=== PATIENT | female | born 1950 ===

== ENCOUNTER 2018-02-01 09:46 | Emergency (ER) | payer MEDICARE ==
[2018-02-01 10:37] VITALS: TEMP 98
--- NOTE | 2018-02-01 10:51 | C.PDOC ---
History Of Present Illness 67 y/o F c PMHx HTN, HLD, DM, cardiac stents, uses breathing machine only at night, anxiety p/w general weakness x 3 days, gradually worsening. Denies LOC or fall. Reports loose stool this morning. Denies fever, chills, chest pain, vomiting, motor weakness. Time Seen by Provider: 02/01/18 10:37 Chief Complaint (Nursing): Weakness/Neurological Deficit Past Medical History Vital Signs: Last Vital Signs Temp 98 F 02/01/18 13:56 Pulse 86 02/01/18 13:56 Resp 18 02/01/18 13:56 BP 104/74 02/01/18 13:56 Pulse Ox 98 02/01/18 13:56 - Medical History PMH: HTN Family History: States: No Known Family Hx - Social History Hx Alcohol Use: No Hx Substance Use: No Review Of Systems Except As Marked, All Systems Reviewed And Found Negative. Constitutional: Negative for: Fever Cardiovascular: Negative for: Chest Pain Physical Exam - Physical Exam Additional Physical Exam Comments: Constitutional: Appears generally weak. Head: Normocephalic. Atraumatic. Eyes: PERRL. ENT: Moist mucous membranes. Neck: Supple. Cardiovascular: Regular rate. Radial pulse 2+ bilaterally. Chest: No tenderness. Respiratory: Clear to auscultation bilaterally. GI: Soft. Epigastric and suprapubic tenderness. Back: No CVA tenderness. Musculoskeletal: No tenderness or swelling of extremities. Skin: No rash. Neurologic: Alert, no focal deficit. ED Course And Treatment - Laboratory Results Result Diagrams: 02/01/18 10:55 02/01/18 10:55 O2 Sat by Pulse Oximetry: 99 Medical Decision Making Medical Decision Making: EKG NSR 80 bpm, no ST elevations. Chest X-Ray HISTORY: general weakness COMPARISON: No prior. FINDINGS: LUNGS: The lungs are well inflated and clear. PLEURA: No significant pleural effusion identified, no pneumothorax apparent. CARDIOVASCULAR: Normal. OSSEOUS STRUCTURES: No significant abnormalities. VISUALIZED UPPER ABDOMEN: Normal. OTHER FINDINGS: None. IMPRESSION: No active pulmonary disease. CT ABD IMPRESSION: Mild nonspecific enteritis involving multiple loops of proximal jejunum. Sigmoid diverticulosis without evidence of diverticulitis. Status post cholecystectomy. No other significant abnormality. Patient states she feels better. Offered admission but she refused and wished to go home. F/u PMD, instructed to return to ED for worsening pain, fever, vomiting, dyspnea, or any other problem. Disposition - Disposition Disposition: HOME/ ROUTINE Disposition Time: 13:59 Condition: STABLE Prescriptions: levoFLOXacin [Levaquin] 1 tab PO DAILY #10 tab Metronidazole [Flagyl] 500 mg PO Q8 #30 tab Ondansetron ODT [Zofran ODT] 4 mg PO Q8 #12 odt Instructions: Acute Abdomen (Belly Pain), Adult (DC) Forms: [employer] (Persian) - Clinical Impression Clinical Impression: Enteritis
[2018-02-01 11:00] LABS: BASO % 0.5 % (0.0-2.0); EOS % 0.4 % (0.0-4.0); HEMOGLOBIN 13.6 g/dL (11.0-16.0); LYMPH # 2.2 K/uL (1.0-4.3); LYMPH % 27.1 % (20.0-40.0); MEAN CELL VOLUME 86.8 fL (81.0-99.0); MEAN CORPUSCULAR HEMOGLOBIN 29.4 pg (27.0-31.0); MEAN CORPUSCULAR HGB CONC 33.9 g/dL (33.0-37.0); MEAN PLATELET VOLUME 8.1 fL (7.2-11.7); MONO # 0.6 K/uL (0.0-0.8); MONO % 7.7 % (0.0-10.0); NEUT # 5.3 K/uL (1.8-7.0); NEUT % 64.3 % (50.0-75.0); RBC 4.62 Mil/uL (3.80-5.20); WHITE BLOOD COUNT 8.2 K/uL (4.8-10.8)
[2018-02-01 11:09] LABS: PROTHROMBIN TIME 10.7 SECONDS (9.7-12.2)
[2018-02-01 11:14] LABS: ALB/GLOB RATIO 1.4 (1.0-2.1); ALBUMIN 4.6 g/dL (3.5-5.0); ALT/SGPT 29 U/L (9-52); AST/SGOT 26 U/L (14-36); BLOOD UREA NITROGEN 11 mg/dL (7-17); CALCIUM 10.6 mg/dl (8.6-10.4); GFR AFRICAN-AMERICAN > 60; GFR NON-AFRICAN AMERICAN > 60; LIPASE 83 U/L (23-300)
[2018-02-01 11:26] LABS: B-TYPE NATRIURETIC PEPTIDE 55.8 pg/mL (0-900)
--- NOTE | 2018-02-01 11:36 | RAD ---
HISTORY: general weakness COMPARISON: No prior. FINDINGS: LUNGS: The lungs are well inflated and clear. PLEURA: No significant pleural effusion identified, no pneumothorax apparent. CARDIOVASCULAR: Normal. OSSEOUS STRUCTURES: No significant abnormalities. VISUALIZED UPPER ABDOMEN: Normal. OTHER FINDINGS: None. IMPRESSION: No active pulmonary disease.
[2018-02-01 11:54] LABS: URINE BILIRUBIN NEGATIVE (NEGATIVE); URINE BLOOD NEGATIVE (NEGATIVE); URINE CLARITY Clear (Clear); URINE COLOR Straw (YELLOW); URINE GLUCOSE (UA) NORMAL (Normal); URINE LEUKOCYTE ESTERASE NEG Leu/uL (Negative); URINE PROTEIN NEGATIVE (NEGATIVE); URINE UROBILINOGEN NORMAL mg/dL (0.2-1.0)
[2018-02-01] MEDS ORDERED: Iodixanol 320 MG/ML 100 ML BOTTLE IV ONE (13:35)
[2018-02-01 13:56] VITALS: PULSE 86; RESP 18
--- NOTE | 2018-02-01 15:05 | CT ---
PROCEDURE: CT Abdomen and Pelvis with contrast HISTORY: abd pain COMPARISON: None. TECHNIQUE: Contrast dose: 100 mL Visipaque 320 Radiation dose: Total exam DLP = 441.63 mGy-cm. This CT exam was performed using one or more of the following dose reduction techniques: Automated exposure control, adjustment of the mA and/or kV according to patient size, and/or use of iterative reconstruction technique. FINDINGS: LOWER THORAX: Unremarkable. LIVER: No mass. Smooth contour. Normal size. Mild central intrahepatic biliary dilatation consistent with prior cholecystectomy. GALLBLADDER AND BILE DUCTS: Status post cholecystectomy. Mildly dilated common bile duct up to 8 mm consistent with prior cholecystectomy and patient age. PANCREAS: Unremarkable. No gross lesion or ductal dilatation. SPLEEN: Unremarkable. ADRENALS: Unremarkable. No mass. KIDNEYS AND URETERS: Unremarkable. No hydronephrosis. No solid mass. VASCULATURE: Unremarkable. No aortic aneurysm. BOWEL: Nonspecific circumferential mural thickening of multiple loops of proximal jejunum consistent with nonspecific enteritis. No bowel obstruction. Sigmoid diverticulosis without evidence of diverticulitis. APPENDIX: Normal appendix. PERITONEUM: Unremarkable. No free fluid. No free air. LYMPH NODES: Unremarkable. No enlarged lymph nodes. BLADDER: Unremarkable. REPRODUCTIVE: Normal uterus BONES: No acute fracture. OTHER FINDINGS: None. IMPRESSION: Mild nonspecific enteritis involving multiple loops of proximal jejunum. Sigmoid diverticulosis without evidence of diverticulitis. Status post cholecystectomy. No other significant abnormality.
[2018-02-01 15:36] VITALS: BP 123/74; O2SAT 98
--- NOTE | 2018-02-05 12:11 | CARD ---
APPROVED REPORT EKG Measurement Heart [id number] <Conclusion> Normal sinus rhythm with sinus arrhythmia Nonspecific T wave abnormality Abnormal ECG
== END 2018-02-01 15:36 | disposition home or self-care (01) ==
LOC: C.ER 09:46
DX: K52.9 Noninfective gastroenteritis and colitis, unspecified (principal)
CPT/HCPCS: 71045; 74177; 80053; 81001; 82550; 82553; 82948; 83690; 83880; 84484; 85025; 85610; 85730; 87086; 93005; 99285; Q9967